=== PATIENT | male | born 2000 | race Caucasian/White ===

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

== ENCOUNTER → 2020-07-20 | Outpatient (CLI) | payer SELFPAY ==
[~2020-07-20] MED LIST: IOPAMIDOL 370 MG/ML 200 ML INFUS..BTL INJ ONE; SODIUM CHLORIDE 0.9% 50ML 50 ML ONE
== END ==
LOC: CT 15:55
PROVIDERS: ATTEND Internal Medicine
DX: R10.31 Right lower quadrant pain (principal)
CPT/HCPCS: 74177; Q9967

== ENCOUNTER 2022-01-10 21:40 | Emergency (ER) | payer BC ==
[~2022-01-10] VITALS: Ht 177.8 cm; Wt 68.0 kg
[2022-01-10 22:17] LABS: CLARITY,URINE CLEAR (CLEAR); COLOR,URINE YELLOW (YELLOW); KETONES,URINE 1+ (NEGATIVE); LEUKOCYTE ESTERASE ,URINE NEGATIVE (NEGATIVE); NITRITE,URINE NEGATIVE (NEGATIVE); PROTEIN,URINE DIPSTICK NEGATIVE (NEGATIVE); URINE UROBILINOGEN 0.2 mg/dL (0.2 - 1)
[2022-01-10 22:34] LABS: BACTERIA,URINE RARE /HPF; MUCUS,URINE MODERATE (RARE)
== END 2022-01-10 23:01 | disposition home or self-care (01) ==
LOC: ER 21:46
DX: N50.812 Left testicular pain (principal)
CPT/HCPCS: 76870; 81001; 87086; 93976; 99282